=== PATIENT | female | born 1950 | race Caucasian/White ===

== ENCOUNTER → 2017-09-19 | Outpatient (REF) | payer MEDICARE, OTHER ==
[~2017-09-19] MED LIST: ASCO-182 PO; ASPI81TA94 PO; CALC-767 PO; CHOL200022 PO; GLUC-198 PO; LEV112 PO; LISI-355 PO; NIAC500C12 PO; OMEG-23 PO; RALO60TA12 PO; TRAZ-156 PO; UBID100C48 PO; [UNRECOGNIZED DRUG - CODE] PO
== END ==
LOC: ZZSENDIN 13:31
PROVIDERS: ATTEND Urology
DX: N39.0 Urinary tract infection, site not specified (principal); B96.20 Unspecified Escherichia coli [E. coli] as the cause of diseases classified elsewhere
CPT/HCPCS: 87077; 87088; 87186

== ENCOUNTER → 2017-12-04 | Outpatient (REF) | payer MEDICARE, OTHER | LOC: ZZSENDIN 18:12 | PROVIDERS: ATTEND Urology | DX: N39.0 Urinary tract infection, site not specified (principal) | CPT/HCPCS: 81001; 87088 ==

== ENCOUNTER 2018-09-12 11:00 | Emergency (ER) | payer MEDICARE, OTHER ==
--- NOTE | 2018-09-12 11:31 | ER Report ---
History and Physical Time Seen By MD: 11:27 Hx. of Stated Complaint: Pt. having chest pain since 2am this morning. Coming and going. Now chest pain is constant for the past 30 minutes. Pt. did take 4 baby aspirin prior to arrival. SOB also a symptom. RR 16 HPI/ROS CHIEF COMPLAINT: Chest pain HISTORY OF PRESENT ILLNESS: This is a 67-year-old female presents to emergency. For chest pain. Patient states that around 2 AM she woke up noticed she had some chest pain somewhat transients across her entire chest and into her back, she was able to go back to sleep. She states she woke up again around 6:30 maybe had some mild underlying chest discomfort but nothing too significant, that her morning chores, went to a meeting, then around 11:00 she had a significant amount of anterior chest pain that radiated into the back. No nausea or vomiting. No diaphoresis. No visual changes. No shortness of breath. She also states that she's been traveling, has been back in [place] for about one week, was in [place]. REVIEW OF SYSTEMS: Constitutional: No fever, no chills. Eyes: No discharge. ENT: No sore throat. Cardiovascular: As above. Respiratory: No cough, no shortness of breath. Gastrointestinal: No abdominal pain, no vomiting. Genitourinary: No hematuria. Musculoskeletal: As above. Skin: No rashes. Neurological: No headache. Allergies: Coded Allergies: Sulfa (Sulfonamide Antibiotics) (Verified Allergy, Intermediate, Red Rash, 09/12/18) amoxicillin (Verified Allergy, Intermediate, Hives/Rash on Chest, 09/12/18) alfalfa (Verified Allergy, Unknown, 09/12/18) cat dander (Verified Allergy, Unknown, 09/12/18) nitrofurantoin (Verified Allergy, Unknown, RASH, 09/12/18) sulfamethoxazole (Verified Allergy, Unknown, RASH, 09/12/18) trimethoprim (Verified Allergy, Unknown, RASH, 09/12/18) Home Meds Active Scripts Estrogens, Conjugated (Premarin) 0.625 Mg/Gram Cream.appl, 0.5 GM PV DIRECTED for 30 Days, #1 TUBE 2 Refills 0.5 gram PV QHS for 2 weeks then 3 times weekly thereafter Prov:LAKE DUVALL MD 03/17/18 Reported Medications Krill/Om-3/Dha/Epa/Phospho/Ast (Megared [place]-3 Krill Oil Sfgl) 1 Each Capsule 03/17/18 Cranberry Extract (CRANBERRY) 500 Mg Capsule, 1 CAP PO QDAY, CAPSULE 03/11/18 Cinnamon Bark (CINNAMON) 500 Mg Capsule, 2 CAP PO QDAY, CAPSULE 03/11/18 Glipizide (GLIPIZIDE) 5 Mg Tablet, 1 TAB PO QDAY 03/11/18 Glucosa Blandon 2KCL/Chondroitin Blandon (GLUCOSAMINE CHONDROITIN CAPLET) 1 Each Tablet, 2 TAB PO QDAY 03/11/18 Ubidecarenone (CO Q-10) 200 Mg Capsule, 1 CAP PO QDAY, CAPSULE 03/11/18 Levothyroxine Sodium (LEVOTHYROXINE SODIUM) 100 Mcg Tablet, 1 TAB PO QDAY, TAB 03/11/18 Aspirin (ASPIRIN) 81 Mg Tab.chew, 1 TAB PO QDAY 02/26/13 Niacin (NIACIN) 500 Mg Capsule.er, 3 CAP PO QDAY 02/26/13 Calcium Carbonate/Vitamin D3 (CALCIUM 500 + VIT D CAPLET) 1 Each Tablet, 2 CAP PO QDAY 02/26/13 Cholecalciferol (Vitamin D3) (VITAMIN D) 2,000 Unit Tablet, 2 TAB PO QDAY 02/26/13 Ascorbic Acid (VITAMIN C) 500 Mg Tablet, 1 TAB PO BID 02/26/13 Multivits,Th W-Fe,Other Min (COMPLETE MULTIVITAMIN) 1 Each Tablet, 1 TAB PO QDAY 02/26/13 Trazodone Hcl (TRAZODONE HCL) 50 Mg Tablet, 1 TAB PO QDAY 02/26/13 Raloxifene Hcl (EVISTA) 60 Mg Tablet, 1 TAB PO QDAY 02/26/13 Lisinopril/Hydrochlorothiazide (LISINOPRIL-HCTZ 20-25 MG TAB) 1 Each Tablet, 1 TAB PO QDAY 02/26/13 Past Medical/Surgical History The patient has a past medical and surgical history of hypertension, GERD, gallstones, urinary tract infections, menopause, arthritis, back pain, strep throat, wears glasses, type II diabetes, hypothyroidism, cholecystectomy. Reviewed Nurses Notes: Yes Smoking Status: Never Smoker Constitutional Vital Sign - Last 24 Hours 09/12/18 09/12/18 09/12/18 09/12/18 11:00 11:04 11:06 11:10 Temp 97.5 Pulse ??? 86 87 Resp 16 10 B/P (MAP) 184/116 (138) 184/116 Pulse Ox 90 92 O2 Delivery Room Air 09/12/18 09/12/18 09/12/18 09/12/18 11:15 11:20 11:25 11:30 Pulse 84 79 79 77 Resp 32 Pulse Ox 91 91 93 93 09/12/18 09/12/18 09/12/18 09/12/18 11:35 11:40 12:00 12:05 Pulse 84 82 76 97 Resp 75 29 9 19 B/P (MAP) 151/91 (111) Pulse Ox 91 91 92 84 09/12/18 09/12/18 09/12/18 09/12/18 12:10 12:15 12:20 12:25 Pulse 79 74 72 74 Resp 36 17 40 52 Pulse Ox 95 95 93 92 09/12/18 09/12/18 09/12/18 09/12/18 12:30 13:03 13:30 14:00 Pulse 73 69 70 B/P (MAP) 154/90 (111) 148/89 (108) 146/85 (105) 141/90 (107) Pulse Ox 90 95 93 09/12/18 09/12/18 09/12/18 09/12/18 14:05 14:30 14:35 15:00 Pulse 73 76 B/P (MAP) 160/98 (118) 164/91 (115) Pulse Ox 93 92 09/12/18 09/12/18 09/12/18 09/12/18 15:05 15:30 15:35 16:00 Pulse 79 80 Resp 15 B/P (MAP) 168/99 (122) 153/93 (113) Pulse Ox 94 09/12/18 09/12/18 09/12/18 09/12/18 16:05 16:30 16:35 17:00 Pulse 84 96 B/P (MAP) 171/105 (127) 156/98 (117) Pulse Ox 94 92 09/12/18 09/12/18 09/12/18 09/12/18 17:05 17:13 17:30 17:35 Pulse 86 88 Resp 12 B/P (MAP) 160/101 (120) 149/90 (109) Pulse Ox 91 94 09/12/18 09/12/18 09/12/18 18:00 18:05 18:30 Pulse 93 Resp 13 B/P (MAP) 145/94 (111) 141/84 (103) Pulse Ox 94 Physical Exam General Appearance: The patient is alert, has no immediate need for airway pr otection and no signs of toxicity. Eyes: Pupils equal and round no pallor or injection. ENT, Mouth: Mucous membranes are moist. Respiratory: There are no retractions, lungs are clear to auscultation. Cardiovascular: Regular rate and rhythm, no murmurs, clicks or rubs. Non- reproducible chest pain. Gastrointestinal: Abdomen is soft and non tender, no masses, bowel sounds normal. Neurological: Alert and oriented 4. Moving all extenders. Following all commands. No focal neuro deficits. Skin: Warm and dry, no rashes. Musculoskeletal: Neck is supple non tender. Extremities are nontender, nonswollen and have full range of motion. DIFFERENTIAL DIAGNOSIS: After history and physical exam differential diagnosis was considered for chest pain including but not limited to myocardial ischemia, pericarditis pulmonary embolus, chest wall pain, pleural inflammation and pulmonary infectious causes. Medical Decision Making Data Points Result Diagram: 09/12/18 1110 09/12/18 1110 Laboratory Hematology Test 09/12/18 11:10 09/12/18 11:47 09/12/18 15:05 09/12/18 16:37 Red Blood Count 4.94 M/uL (4.17-5.56) Mean Corpuscular Volume 92.5 fL (80.0-96.0) Mean Corpuscular Hemoglobin 32.0 pg (26.0-33.0) Mean Corpuscular Hemoglobin Concent 34.6 g/dL (32.0-36.0) Red Cell Distribution Width 12.5 % (11.5-14.5) Mean Platelet Volume 7.8 fL (7.2-11.1) Neutrophils (%) (Auto) 62.7 % (39.4-72.5) Lymphocytes (%) (Auto) 25.6 % (17.6-49.6) Monocytes (%) (Auto) 9.8 % (4.1-12.4) Eosinophils (%) (Auto) 1.1 % (0.4-6.7) Basophils (%) (Auto) 0.8 % (0.3-1.4) Nucleated RBC Relative Count (auto) 0.0 /100WBC Neutrophils # (Auto) 4.3 K/uL (2.0-7.4) Lymphocytes # (Auto) 1.7 K/uL (1.3-3.6) Monocytes # (Auto) 0.7 K/uL (0.3-1.0) Eosinophils # (Auto) 0.1 K/uL (0.0-0.5) Basophils # (Auto) 0.1 K/uL (0.0-0.1) Nucleated RBC Absolute Count (auto) 0.00 K/uL D-Dimer Quantitative (PE/DVT) < 0.27 ug/ml (0-0.50) Sodium Level 135 mmol/L (137-145) Potassium Level 3.7 mmol/L (3.5-5.0) Chloride Level 103 mmol/L (98-107) Carbon Dioxide Level 26 mmol/L (22-31) Blood Urea Nitrogen 16 mg/dl (7-18) Creatinine 0.60 mg/dl (0.52-1.04) Glomerular Filtration Rate Calc > 60.0 Random Glucose 169 mg/dl (75-110) Calcium Level 10.5 mg/dl (8.4-10.2) Total Bilirubin 0.3 mg/dl (0.2-1.3) Aspartate Amino Transf (AST/SGOT) 26 U/L (0-35) Alanine Aminotransferase (ALT/SGPT) 26 U/L (0-56) Alkaline Phosphatase 56 U/L (0-126) Total Protein 7.3 g/dl (6.3-8.2) Albumin 4.2 g/dl (3.5-5.0) Urine Color Straw Urine Clarity Clear Urine pH 7.0 pH (4.8-9.5) Urine Specific [place] 1.005 Urine Protein Negative mg/dL (NEGATIVE) Urine Glucose (UA) Negative mg/dL (NEGATIVE) Urine Ketones Negative mg/dL (NEGATIVE) Urine Blood Negative (NEGATIVE) Urine Nitrite Negative (NEGATIVE) Urine Bilirubin Negative (NEGATIVE) Urine Urobilinogen Negative mg/dL (0.2-1.9) Urine Leukocyte Esterase Negative (NEGATIVE) Urine RBC None /HPF (0-2/HPF) Urine WBC <1 /HPF (0-5/HPF) Urine Squamous Epithelial Cells None /LPF (</=FEW) Urine Bacteria Negative /HPF (NONE-FEW) Urine Mucus None /HPF (NONE-FEW) Whole Blood Glucose 83 mg/DL (75-110) Troponin I 0.053 ng/ml Chemistry Test 09/12/18 11:10 09/12/18 11:47 09/12/18 15:05 09/12/18 16:37 White Blood Count 6.8 k/uL (4.5-11.0) Red Blood Count 4.94 M/uL (4.17-5.56) Hemoglobin 15.8 g/dL (12.0-16.0) Hematocrit 45.7 % (34.0-47.0) Mean Corpuscular Volume 92.5 fL (80.0-96.0) Mean Corpuscular Hemoglobin 32.0 pg (26.0-33.0) Mean Corpuscular Hemoglobin Concent 34.6 g/dL (32.0-36.0) Red Cell Distribution Width 12.5 % (11.5-14.5) Platelet Count 253 K/uL (150-450) Mean Platelet Volume 7.8 fL (7.2-11.1) Neutrophils (%) (Auto) 62.7 % (39.4-72.5) Lymphocytes (%) (Auto) 25.6 % (17.6-49.6) Monocytes (%) (Auto) 9.8 % (4.1-12.4) Eosinophils (%) (Auto) 1.1 % (0.4-6.7) Basophils (%) (Auto) 0.8 % (0.3-1.4) Nucleated RBC Relative Count (auto) 0.0 /100WBC Neutrophils # (Auto) 4.3 K/uL (2.0-7.4) Lymphocytes # (Auto) 1.7 K/uL (1.3-3.6) Monocytes # (Auto) 0.7 K/uL (0.3-1.0) Eosinophils # (Auto) 0.1 K/uL (0.0-0.5) Basophils # (Auto) 0.1 K/uL (0.0-0.1) Nucleated RBC Absolute Count (auto) 0.00 K/uL D-Dimer Quantitative (PE/DVT) < 0.27 ug/ml (0-0.50) Glomerular Filtration Rate Calc > 60.0 Calcium Level 10.5 mg/dl (8.4-10.2) Total Bilirubin 0.3 mg/dl (0.2-1.3) Aspartate Amino Transf (AST/SGOT) 26 U/L (0-35) Alanine Aminotransferase (ALT/SGPT) 26 U/L (0-56) Alkaline Phosphatase 56 U/L (0-126) Total Protein 7.3 g/dl (6.3-8.2) Albumin 4.2 g/dl (3.5-5.0) Urine Color Straw Urine Clarity Clear Urine pH 7.0 pH (4.8-9.5) Urine Specific [place] 1.005 Urine Protein Negative mg/dL (NEGATIVE) Urine Glucose (UA) Negative mg/dL (NEGATIVE) Urine Ketones Negative mg/dL (NEGATIVE) Urine Blood Negative (NEGATIVE) Urine Nitrite Negative (NEGATIVE) Urine Bilirubin Negative (NEGATIVE) Urine Urobilinogen Negative mg/dL (0.2-1.9) Urine Leukocyte Esterase Negative (NEGATIVE) Urine RBC None /HPF (0-2/HPF) Urine WBC <1 /HPF (0-5/HPF) Urine Squamous Epithelial Cells None /LPF (</=FEW) Urine Bacteria Negative /HPF (NONE-FEW) Urine Mucus None /HPF (NONE-FEW) Whole Blood Glucose 83 mg/DL (75-110) Troponin I 0.053 ng/ml Coagulation Test 09/12/18 11:10 D-Dimer Quantitative (PE/DVT) < 0.27 ug/ml Urinalysis Test 09/12/18 11:47 Urine Color Straw Urine Clarity Clear Urine pH 7.0 pH (4.8-9.5) Urine Specific Maup[place] 1.005 Urine Protein Negative mg/dL (NEGATIVE) Urine Glucose (UA) Negative mg/dL (NEGATIVE) Urine Ketones Negative mg/dL (NEGATIVE) Urine Blood Negative (NEGATIVE) Urine Nitrite Negative (NEGATIVE) Urine Bilirubin Negative (NEGATIVE) Urine Urobilinogen Negative mg/dL (0.2-1.9) Urine Leukocyte Esterase Negative (NEGATIVE) Urine RBC None /HPF (0-2/HPF) Urine WBC <1 /HPF (0-5/HPF) Urine Squamous Epithelial Cells None /LPF (</=FEW) Urine Bacteria Negative /HPF (NONE-FEW) Urine Mucus None /HPF (NONE-FEW) EKG/Imaging EKG Interpretation 12 lead EKG: Time of EKG 1107. Rhythm: Normal sinus rhythm, ventricular rate 83 BPM. [place]: normal QRS: normal ST segments: No ST depression or elevation identified. No previous EKGs for comparison. 12 lead EKG: Repeat EKG time, 1436. Rhythm: Normal sinus rhythm, ventricular rate 76 bpm. [place]: normal QRS: normal ST segments: No ST depression or elevation identified, no changes from the previous EKG. 12 lead EKrd EKG time 1624, with chest pain. Rhythm: Normal sinus rhythm, [place]: normal QRS: normal ST segments: No ST depression or elevation identified. No significant changes from the previous EKGs. [place] [facility] [place] Sudha Soto : 1950 Visit/Account:[id number] Date of Sevice: 09/12/2018 CHEST PA LAT HISTORY: Chest pain. As of breath. COMPARISON: 2016. FINDINGS: Cardiomediastinal contours: The heart size is normal. Lungs and pleura: There is no finding of an infiltrate, lymphadenopathy or pleural effusion. Bones/soft tissues: There are no findings of a fracture. Abdomen: There are surgical clips in right upper quadrant. IMPRESSION: No active disease in the chest. Report Dictated By: Brian Davis MD at 09/12/2018 12:23 PM Report E-Signed By: Brian Davis MD at 09/12/2018 12:24 PM WSN:[id number] ED Course/Re-evaluation Clinical Indication for ER IV: Hydration, IV Access ED Course The patient was admitted to room. A history and physical were obtained. Differential diagnoses were considered. IV was started. A CBC, CMP, troponin. Negative two-view chest x-ray. CBC unremarkable, chemistry showing sodium 135, GFR greater than 60, glucose 169, calcium 10.5, initial troponin at 11:10 0.032, repeat troponin at 13:53 0.047, repeat troponin at 16:37 0.053, patient continues to have intermittent chest pain. Negative d-dimer. Negative UA. I reviewed the 1st 2 troponins with the patient's, I also spoke with Dr. topete the glass silverer at [facility], we discussed observation with an echocardiogram, I did keep the patient for a repeat troponin and an echo. The 3rd troponin although not sig nificantly elevated it is still trending up, patient continues to have more frequent anterior chest pain. I am concerned that this is ACS and does need a more in-depth evaluation and will be can offer, I did speak with Dr. Morel, the hospitalist at [facility], he's accepted the patient into the hospitalist services, Dr. topete the glass silverer is also aware of the patient will be transferred down. The patient is in agreement with this plan. The patient was given 1 inch of nitro paste which provided significant relief. The patient was also given a 1 mg/kg dose of Lovenox, at the request of the hospitalist. 09/12/2018 3:05:23 pm I did speak with Dr. Topete, the glass silverer administration assistant for [facility], we discussed the patients case, although the troponin is still in the indeterminate range, he suggested perhaps observation and echo would not a be unreasonable. 09/12/2018 4:31:32 pm patient having left anterior chest pain. 09/12/2018 4:48:44 pm Patient having recurrent anterior chest pain. 1inch of nitro paste given, pain did improve. 09/12/2018 5:50:58 pm I did speak with the hospitalist at [facility], Dr. Morel, he has accepted the patient into the hospitalist services for chest pain and trending troponins. Decision to Disposition Date: Sep 12, 2018 Decision to Disposition Time: 17:52 Depart Departure Latest Vital Signs Vital Signs Date Time Temp Pulse Resp B/P (MAP) Pulse Ox O2 Delivery O2 Flow Rate FiO2 09/12/18 18:30 141/84 (103) 09/12/18 18:05 93 13 94 09/12/18 11:06 97.5 Room Air Impression: Primary Impression: Chest pain Additional Impression: Elevated troponin level Condition: Improved Disposition: XFER TO ACUTE CARE HOSPITAL ([facility]) Referrals: LAKE DUVALL MD (PCP) Problem Qualifiers Primary Impression: Chest pain Chest pain type: other chest pain Qualified Codes: R07.89 - Other chest pain NAHUM HOLLAND MANAGEMENT COORDINATOR-BC Sep 12, 2018 11:31
[2018-09-12 11:51] LABS: PLATELET COUNT, AUTOMATED 253 K/uL (150-450)
--- NOTE | 2018-09-12 12:28 | RADIOLOGY IMAGING REPORT ---
FACILITY: [facility] PATIENT NAME: Sudha Soto : 1950 MR: [id number] V: [id number] EXAM DATE: ORDERING PHYSICIAN: NAHUM HOLLAND TECHNOLOGIST: Location: [facility] - [place] Patient: Sudha Soto : 1950 Visit/Account:[id number] Date of Sevice: 09/12/2018 CHEST PA LAT HISTORY: Chest pain. As of breath. COMPARISON: 2016. FINDINGS: Cardiomediastinal contours: The heart size is normal. Lungs and pleura: There is no finding of an infiltrate, lymphadenopathy or pleural effusion. Bones/soft tissues: There are no findings of a fracture. Abdomen: There are surgical clips in right upper quadrant. IMPRESSION: No active disease in the chest. Report Dictated By: Brian Davis MD at 09/12/2018 12:23 PM Report E-Signed By: Brian Davis MD at 09/12/2018 12:24 PM WSN:[id number]
--- NOTE | 2018-09-12 12:36 | EKG ---
FACILITY: [facility] PATIENT NAME: CORTEZ RIVERA : [id number] MR: [id number] V: [id number] EXAM DATE: ORDERING PHYSICIAN: NAHUM HOLLAND TECHNOLOGIST: Test Reason : chest pain Blood Pressure : / mmHG Vent. Rate : 083 BPM Atrial Rate : 083 BPM P-R Int : 180 ms QRS Dur : 088 ms QT Int : 372 ms P-R-T Axes : 054 007 041 degrees QTc Int : 437 ms Sinus rhythm Borderline left axis Artifact in V5 No previous ECGs available Confirmed by SHADI ORTIZ ([id number]) on 09/12/2018 9:08:50 PM Referred By: Confirmed By:SHADI ORTIZ
--- NOTE | 2018-09-12 15:00 | EKG ---
FACILITY: [facility] PATIENT NAME: CORTEZ RIVERA : [id number] MR: [id number] V: [id number] EXAM DATE: ORDERING PHYSICIAN: NAHUM HOLLAND TECHNOLOGIST: Test Reason : repeat Blood Pressure : / mmHG Vent. Rate : 076 BPM Atrial Rate : 076 BPM P-R Int : 184 ms QRS Dur : 094 ms QT Int : 408 ms P-R-T Axes : 057 004 010 degrees QTc Int : 459 ms Sinus rhythm Borderline left axis Artifact in leads II, III No acute appearing findings Confirmed by SHADI ORTIZ ([id number]) on 09/12/2018 9:19:41 PM Referred By: Confirmed By:SHADI ORTIZ
[2018-09-12] MEDS ORDERED: NITROGLYCERIN OINT 1 GM PKT TP ONE (16:50)
[2018-09-12] MEDS ORDERED: MORPHINE 4 MG/ML SDV IVP ONE (16:55)
[2018-09-12 18:30] VITALS: BP 141/84
[2018-09-12] MEDS ORDERED: ENOXAPARIN 100 MG/ML SYR SC SCH (21:00)
--- NOTE | 2018-09-13 06:37 | EKG ---
FACILITY: [facility] PATIENT NAME: CORTEZ RIVERA : [id number] MR: [id number] V: [id number] EXAM DATE: ORDERING PHYSICIAN: NAHUM HOLLAND TECHNOLOGIST: Test Reason : repeat Blood Pressure : / mmHG Vent. Rate : 089 BPM Atrial Rate : 089 BPM P-R Int : 188 ms QRS Dur : 096 ms QT Int : 390 ms P-R-T Axes : 054 010 007 degrees QTc Int : 474 ms Normal sinus rhythm Nonspecific ST and T wave abnormality Prolonged QT Abnormal ECG When compared with ECG of 09.12.2018 No significant change was found Confirmed by Darion Morgan ([id number]) on 09/13/2018 10:47:23 PM Referred By: Confirmed By:Darion Mansfield
== END 2018-09-12 19:25 | disposition short-term general hospital (02) ==
LOC: ER 11:03
DX: R07.89 Other chest pain (principal); R79.89 Other specified abnormal findings of blood chemistry
CPT/HCPCS: 36415; 36416; 71046; 81001; 82948; 84484; 85025; 85379; 93005; 93306; 96372; 99285; A9270; J1650; 82040; 82247; 82310; 82374; 82435; 82565; 82947; 84075; 84132; 84155; 84295; 84450; 84460; 84520

== ENCOUNTER → 2018-09-12 | Outpatient (CLI) | payer MEDICARE, OTHER ==
[~2018-09-12] MED LIST changes: +CHOL200018 PO; -CHOL200022 PO; +CINN500C12 PO; +CRAN500C11 PO; +ESTR42.5 PV; +GLIP-152 PO; +GLUC-396 PO; +KRIL1CAP22; +LEVO-3 PO; -TRAZ-156 PO; +TRAZ50TA34 PO; +UBID200C21 PO
== END ==
LOC: AMB 19:00
PROVIDERS: ATTEND Nurse Practitioner
DX: R07.9 Chest pain, unspecified (principal); I49.8 Other specified cardiac arrhythmias
CPT/HCPCS: A0425; A0428

== ENCOUNTER 2019-01-04 10:00 | Outpatient (RCR) | payer MEDICARE, OTHER ==
[2018-10-07 17:31] VITALS: BP 136/84
[2018-10-07 17:32] VITALS: BP 138/82
--- NOTE | 2018-10-07 17:55 | CARDIAC REHAB PLAN OF CARE ---
Physician: Kait Clement Patient is being seen: Charles Sudha Medical Diagnosis: NSTEMI; STENT x 1 Date of Onset: 09/12/18 Date of Initial Evaluation: 10/07/18 INTERVENTIONS: Due Date: 11/04/18 Patient Assessment: Patient is a 67yr old female who comes to rehab following a NSTEMI and STENT x 1 (LAD). She has a health history of hypertension, high cholesterol, and type II diabetes. She is overweight (BMI: 28kg/m2), but eats a relatively healthy diet and exercises regularly. She is highly motivated to start the cardiac rehab program. Exercise Assessment: During her 6 Minute Walk Test, the patient walked a total of 1550ft for an average speed of 2.9mph. While walking on the treadmill the patient walked comfortable at 2.6mph and 1% incline (3.3 METs). During exercise her heart rate ranges between 95-115bpm and blood pressure amanda to 152/86showing normal hemodynamic response. Her SPO2 at rest is borderline hypoxic (87-89% when she does not focus on breathing) and ranges between 85-92% during exercise. She denies shortness of breath. While lifting weights the patient started with 3lb dumbbells, and reports slight pain when lifting in certain directions with her left shoulder. The patient currently does 3 days of yoga/week. Exercise Plan: Goals: The patient is already accustomed to exercising so our goal will be to increase intensity of exercise while maintaining 30-40 minutes of exercise/sessionby the end of 36 visits our goal will be to achieve 5.0 METs on average. We will also set the goal to increase muscular strength and endurance. To do this we will allow the patient to do between 15-20 minutes of strength training during her session to ensure cardiovascular safety and proper form. Exercise Prescription: Mode: Treadmill and free weight strength training Frequency: 3 days/week (MWF) Duration: 30-40 minutes of aerobic exercise; 15-20 minutes of strength training. Intensity: During aerobic exercise the patient should aim to maintain a THR between 100-115bpm, while increasing MET intensity via additional incline. Education: Education will focus on strength trainingproper form, progression, and avoiding use of Valsalva maneuvers to protect the heart from increasing blood pressure. Exercise Reassessment (Date: ): Exercise Discharge/Follow-Up (Date: ): Nutrition Assessment: The patient currently follows Weight Watchers guidelines for eating and maintains a relatively healthy dietfocusing on lean meats, low dairy consumption, low refined carbohydrate consumption, and high fruits and vegetables. Nutrition Plan: Goals: Goals will be to maintain the patients healthy eating habits while making small adjustments/swaps as necessary. Intervention: First we will focus on whole grainseducating the patient about what whole grains how to identify true whole grain food items, and recipes are,. Education: Education will focus on what whole grains are, how to identify true whole grain food items, and recipes. Nutrition Reassessment (Date: ): Nutrition Discharge/Follow-Up (Date: ): Psychosocial Assessment: The patient has recently had a lot of life stressesshe had a NSTEMI, traveled across the country for a wedding, and her sister all within the past 3 weeks. That being said, she denies feeling stressed and does not portray any of the classic stress-related signs/symptoms. She reports having a strong and foundation support system that has helped her through and keeps her positive. She also uses yoga/meditation to help remain in check. Psychosocial Plan: Goals: Our goal will be to add ourselves to her support system and help strengthen her current support system and healthy lifestyle choices. Intervention: Intervention will be focused on creating a positive and safe exercise and social environment for which the patient can come to exercise and learn. We will also aim to involve her in as much as her care as possible. Education: Education will focus on the importance of healthy lifestyle management to also aid stress release. We will also help encourage her to keep up with the daily activities she loves (walking, yoga, etc) in order to maintain her positive mental status. Psychosocial Reassessment (Date: ): Psychosocial Discharge/Follow-Up (Date: ): Physician Signature: Date: MTDD
[2018-10-12 16:26] VITALS: BP 134/82
[2018-10-12 16:27] VITALS: BP 130/70
[2018-10-14 16:38] VITALS: BP 148/80
[2018-10-14 16:41] VITALS: BP 122/70
[2018-10-16 13:12] VITALS: BP_SYST 120; BP_SYST 122; BP_DIAS 64; BP_DIAS 80
[2018-10-19 13:02] VITALS: BP 142/68
[2018-10-19 13:03] VITALS: BP 122/84
[2018-10-21 13:10] VITALS: BP_SYST 124; BP_SYST 130; BP_DIAS 68; BP_DIAS 80
[2018-10-24 09:54] VITALS: BP 140/70
[2018-10-24 09:55] VITALS: BP 144/80
[2018-10-26 17:32] VITALS: BP 136/84
[2018-10-26 17:33] VITALS: BP 132/78
[2018-10-30 12:58] VITALS: BP 132/74
[2018-10-30 12:59] VITALS: BP 130/82
--- NOTE | 2018-11-03 10:22 | CARDIAC REHAB PLAN OF CARE ---
Physician: Kait Clement Patient is being seen: Monica Santiago MS Medical Diagnosis: NSTEMI; Stent x 1 Date of Onset: 09/12/18 Date of Initial Evaluation: 10/07/18 Date patient was last seen: Number of treatments: 09 Number of cancellations/No Shows: 03 INTERVENTIONS: Due Date: 12/04/18 Exercise Reassessment (Date: 11/03/18): The patient has maintained her ability to do CR and continue yoga 3 days/week with no reported abnormal soreness. She has achieved her net goal of 30-40 minutes on average of continuous aerobic exercise (35 minutes on average). However, she has not achieved our primary goal of a little bit of progress every day. The patient has maintained the same speed and grade since day one of the treadmill and has only increased her time by 2 minutes. Our primary goal is to get her to do one thing more each time she comes and really try to emphasize that progress. Her minimal progress is supported by her in ability to achieve her target heart rate (averaging 90- 100bpm). We will really try to push higher intensities this next month with the following goals: Duration: 35-40 minutes Intensity: By the end of the month achieve at least an incline of 5% on the treadmill or at least 4.0 METs. THR: 105-120bpm pending normal BP response. Nutrition Reassessment (Date: 11/03/18): No information to provide with nutritional changes. The patient continues to follow Weight Watchers guidelines. The patient has expressed how she would like to lose about 3lbs/month. We will weigh her the next time she is here for exercise. Psychosocial Reassessment (Date: 11/03/18): Patient continues with high moral and motivation. Our main concern is how to continue to motivate her to push herself harder and increase her intensity without pushing her too much that she becomes unmotivated. To do this, we will take her input into her goals to give her a sense of autonomy as well as have her help develop her exercise plan to achieve those goals. GLORIA
[2018-11-09 17:52] VITALS: BP 154/82
[2018-11-09 17:53] VITALS: BP 120/80
[2018-11-11 17:52] VITALS: BP 126/84
[2018-11-11 17:53] VITALS: BP 120/80
[2018-11-13 13:08] VITALS: BP_SYST 130; BP_SYST 132; BP_DIAS 70; BP_DIAS 82
[2018-11-16 13:03] VITALS: BP_SYST 130; BP_SYST 142; BP_DIAS 70; BP_DIAS 80
[2018-11-18 13:03] VITALS: BP 146/92
[2018-11-18 13:04] VITALS: BP 138/88
[2018-11-21 12:44] VITALS: BP 140/82
[2018-11-21 12:48] VITALS: BP 122/82
[2018-11-23 18:12] VITALS: BP 160/82
[2018-11-23 18:13] VITALS: BP 142/70
[2018-11-25 17:28] VITALS: BP 160/82
[2018-11-25 17:33] VITALS: BP 142/70
[2018-11-27 13:06] VITALS: BP 132/80
[2018-11-27 13:07] VITALS: BP 132/84
[2018-11-30 13:04] VITALS: BP 158/90
[2018-11-30 13:05] VITALS: BP 124/88
[2018-12-02 13:04] VITALS: BP 160/90
[2018-12-02 13:05] VITALS: BP 142/88
--- NOTE | 2018-12-04 15:28 | CARDIAC REHAB PLAN OF CARE ---
Physician: Kait Clement Patient is being seen: Monica Santiago MS Medical Diagnosis: NSTEMI; STENT x 1 Date of Onset: 09/12/18 Date of Initial Evaluation: 10/07/18 Date patient was last seen: 12/04/18 Number of treatments: 21 Number of cancellations/No Shows: 4 INTERVENTIONS: Due Date: 01/03/19 Exercise Reassessment (Date: 12/04/18): Upon the implementation of her most recent ITP, the patient was resistant at first and lacked the confidence to increase her intensity of exercise. After some discussion and education she has become more approachable on the subject. Of the past month, she did accomplish her goal of achieving 4.0 METs (averaging 4.4 on average) while increasing her incline on the treadmill to 3.5%. She also increased her overall duration to 40 minutes/session. The patient is receptive to positive feedback and encouragement. With this motivation she has gladly taken on the following goals for the next month: Duration: 40 minutes/session Intensity: 5.0+ METs and 5.0% incline THR: 105-120bpm. Note, it will take some encouragement to increase the patients HR and is does remain around 90-105bpm during exercise. We have encourage the patient to do intervals with her incline on the treadmill, which she has reported enjoying. Nutrition Reassessment (Date: 12/04/18): No information to update. Psychosocial Reassessment (Date: 12/04/18): The patient was someone resistant to CR earlier this past month. She did not like being pushed to work harder and lacked the confidence to motivate herself. However, she is receptive to positive reinforcement and encouragement. Psychologically and emotionally she needs to be handled gently and with a lot of positivity. Once we made this switch, she become much more motivated to exercise and make improvements that coincide with our goals. GLORIA
[2018-12-04 16:29] VITALS: BP 140/82
[2018-12-04 16:32] VITALS: BP 142/78
[2018-12-07 13:34] VITALS: BP 152/88
[2018-12-07 13:36] VITALS: BP 138/90
[2018-12-18 13:21] VITALS: BP 128/84
[2018-12-18 13:26] VITALS: BP 128/84
[2018-12-21 18:16] VITALS: BP 126/82
[2018-12-21 18:17] VITALS: BP 134/88
[2019-01-04 15:47] VITALS: BP_SYST 142; BP_SYST 152; BP_DIAS 90; BP_DIAS 92
[2019-01-06 16:35] VITALS: BP_SYST 138; BP_SYST 144; BP_DIAS 86; BP_DIAS 92
== END 2019-01-05 ==
LOC: CARD 10:00
PROVIDERS: ATTEND Nurse Practitioner Psychiatric/Mental Health
DX: I25.2 Old myocardial infarction (principal); Z95.5 Presence of coronary angioplasty implant and graft; I10 Essential (primary) hypertension; E78.00 Pure hypercholesterolemia, unspecified; E11.9 Type 2 diabetes mellitus without complications; E66.3 Overweight
CPT/HCPCS: 93798

== ENCOUNTER 2019-02-17 10:00 | Outpatient (RCR) | payer MEDICARE, OTHER ==
[2019-01-08 13:32] VITALS: BP 140/80
[2019-01-08 13:33] VITALS: BP 134/86
[2019-01-13 13:11] VITALS: BP_SYST 136; BP_SYST 142; BP_DIAS 72; BP_DIAS 80
[2019-01-15 17:37] VITALS: BP 140/82
[2019-01-15 17:40] VITALS: BP 118/74
[2019-01-18 13:09] VITALS: BP 144/86
[2019-01-18 13:12] VITALS: BP 142/86
[2019-01-20 18:28] VITALS: BP_SYST 132; BP_SYST 140; BP_DIAS 82; BP_DIAS 92
[2019-01-22 12:43] VITALS: BP_SYST 122; BP_SYST 128; BP_DIAS 84; BP_DIAS 88
[2019-02-12 13:06] VITALS: BP 122/84
[2019-02-12 13:07] VITALS: BP 142/90
[2019-02-15 13:03] VITALS: BP 148/82
[2019-02-15 13:04] VITALS: BP 140/90
[~2019-02-17 10:00] MED LIST changes: -TRAZ50TA34 PO; +TRAZ50TA52 PO
[2019-02-17 12:47] VITALS: BP_SYST 122; BP_SYST 130; BP_DIAS 66; BP_DIAS 92
== END 2019-02-17 18:00 | disposition home or self-care (01) ==
LOC: CARD 10:00
PROVIDERS: ATTEND Nurse Practitioner Psychiatric/Mental Health
DX: I25.2 Old myocardial infarction (principal); Z95.5 Presence of coronary angioplasty implant and graft; I10 Essential (primary) hypertension; E78.00 Pure hypercholesterolemia, unspecified; E11.9 Type 2 diabetes mellitus without complications; E66.3 Overweight
CPT/HCPCS: 93798